=== PATIENT | female | born 1955 | race Caucasian/White ===

== ENCOUNTER 2025-05-11 16:51 | Emergency (ER) | payer MEDICARE, OTHER ==
[~2025-05-11] VITALS: Ht 167.6 cm; Wt 59.0 kg
[2025-05-11] MEDS: DIAZEPAM 5 MG TAB PO ONE (19:42)
[2025-05-11] MEDS: SODIUM CHLORIDE 0.9% 1000ML 1,000 ML IV ONE ×2 (19:51→21:42)
[2025-05-11 20:08] LABS: BASOPHILS % 0.3 % (0.0-1.0); EOSINOPHILS % 0.3 % (0.0-6.0); LYMPHOCYTES % 9.6 % (18.0-39.1); MONOCYTES % 10.6 % (4.4-11.3); NEUTROPHILS % 78.7 % (38.7-80.0); RED CELL DISTRIBUTION WIDTH 20.9 % (11.7-14.4)
[2025-05-11 20:29] LABS: EST GLOMERULAR FILTRATION RATE 95.0 ML/MIN (>=60)
[2025-05-11 22:12] VITALS: PULSE 88; RESP 20; TEMP 98.2; O2SAT 97
== END 2025-05-11 22:40 | disposition home or self-care (01) ==
LOC: ER 18:05
DX: F41.9 Anxiety disorder, unspecified (principal); E87.1 Hypo-osmolality and hyponatremia; I10 Essential (primary) hypertension; F32.A Depression, unspecified
CPT/HCPCS: 36415; 80053; 85025; 99284; J7030

== ENCOUNTER 2025-05-14 21:32 | Inpatient (IN) | payer MEDICARE, OTHER ==
[~2025-05-14] VITALS: Ht 167.6 cm; Wt 60.8 kg
[~2025-05-14 21:32] MED LIST: ETOMIDATE 2 MG/ML 10 ML INJ IV ONE; MIDAZOLAM HCL 2 MG/2 ML VIAL ONE; SUCCINYLCHOLINE CHLORIDE 20 MG/ML 10ML VIAL ONE; VECURONIUM BROMIDE FOR INJ 20 MG VIAL ONE; WATER STERILE 10 ML VIAL ONE
[2025-05-14] MEDS: LORAZEPAM INJ 2 MG/ML VIAL IV ONE ×2 (21:46→22:13)
[2025-05-14 22:03] LABS: BASOPHILS % 0.1 % (0.0-1.0); EOSINOPHILS % 0.2 % (0.0-6.0); LYMPHOCYTES % 5.1 % (18.0-39.1); MONOCYTES % 11.5 % (4.4-11.3); NEUTROPHILS % 81.9 % (38.7-80.0); RED CELL DISTRIBUTION WIDTH 19.6 % (11.7-14.4)
[2025-05-14] MEDS: SODIUM CHLORIDE 0.9% 1000ML 1,000 ML IV ONE (22:08)
[2025-05-14 22:28] LABS: EST GLOMERULAR FILTRATION RATE 96.0 ML/MIN (>=60)
[2025-05-14 22:28] LABS: LEUKOCYTE ESTERASE ,URINE NEGATIVE (NEGATIVE); PROTEIN,URINE DIPSTICK NEGATIVE (NEGATIVE); URINE UROBILINOGEN 1 mg/dL (0.2 - 1)
[2025-05-14 22:30] LABS: AMPHETAMINES SCREEN,URINE NEGATIVE (NEGATIVE); CANNABINOIDS SCREEN,URINE POSITIVE (NEGATIVE); COCAINE SCREEN,URINE NEGATIVE (NEGATIVE); METHADONE SCREEN, URINE NEGATIVE (NEGATIVE); OPIATES SCREEN,URINE NEGATIVE (NEGATIVE)
[2025-05-14 23:20] LABS: ABG PCO2 20 mmHg (35-45); ABG PH 7.43 (7.35-7.45); ABG PO2 70 mmHg (80-105)
[2025-05-14 23:21] LABS: ABG BASE EXCESS -11.0 mmol/L (-2 - 3); ABG HCO3 13 mmol/L (22-26); ABG OXYGEN SATURATION 95.0 % (95-98); ABG TCO2 14
[2025-05-14] MEDS: MUPIROCIN 2% OINT 22 GM TUBE TOP SCH (23:30)
[2025-05-14] MEDS ORDERED: SODIUM CHLORIDE FLUSH 10 ML SYR INJ PRN (23:30)
[2025-05-14] MEDS ORDERED: LORAZEPAM INJ 2 MG/ML VIAL IV SCH (23:30)
[2025-05-15] VITALS (96 sets, daily range): BP systolic 78–181; BP diastolic 50–129; PULSE 66–119; RESP 12–38; TEMP 97.4–99.7; O2SAT 63–100
[2025-05-15 01:03] LABS: EST GLOMERULAR FILTRATION RATE 95.0 ML/MIN (>=60)
[2025-05-15] MEDS ORDERED: MELATONIN 3 MG TAB PO PRN (01:15)
[2025-05-15] MEDS ORDERED: GUAIFENESIN/DEXTROMETHORPHAN LIQD 5 ML UDC PO PRN (01:15)
[2025-05-15] MEDS ORDERED: HYDRALAZINE HCL 20 MG/ML VIAL IV PRN (01:15)
[2025-05-15] MEDS ORDERED: MAGNESIUM/ALUMINUM/SIMETHICONE 30 ML UDC PO PRN (01:15)
[2025-05-15] MEDS: LORAZEPAM INJ 2 MG/ML VIAL IV PRN (01:28)
[2025-05-15] MEDS: LORAZEPAM INJ 2 MG/ML VIAL IV ONE (02:14)
[2025-05-15] MEDS: SODIUM CHLORIDE 3% 500 ML IV STA (02:51)
[2025-05-15] MEDS: THIAMINE HCL INJ 100 MG/ML 2ML VIAL IV ONE (03:02)
[2025-05-15] MEDS: Vancomycin IV 1 GM in SODIUM CHLORIDE 0.9% 250ML 250 ML IV ONE (03:46)
[2025-05-15 04:17] LABS: LYMPHOCYTES % (MANUAL) 9 % (19-48); MONOCYTES % (MANUAL) 13 % (3.4-9.0); NEUTROPHILS % (MANUAL) 78 % (40-74)
[2025-05-15 04:19] LABS: ELLIPTOCYTE, RBC MODERATE; RBC MORPHOLOGY COMMENT ABNORMAL
[2025-05-15 04:21] LABS: PLATELET ESTIMATE ADEQUATE; PLATELET MORPHOLOGY COMMENT FEW LARGE
[2025-05-15 05:20] LABS: CREATININE,URINE RANDOM 51.55 mg/dL (47-110)
[2025-05-15] MEDS: DEXMEDETOMIDINE 400MCG/NS100ML 100 ML IV PRN (05:30)
[2025-05-15 06:45] LABS: BASOPHILS % 0.2 % (0.0-1.0); EOSINOPHILS % 0.0 % (0.0-6.0); LYMPHOCYTES % 1.8 % (18.0-39.1); MONOCYTES % 8.0 % (4.4-11.3); NEUTROPHILS % 88.6 % (38.7-80.0); RED CELL DISTRIBUTION WIDTH 19.6 % (11.7-14.4)
[2025-05-15 07:11] LABS: EST GLOMERULAR FILTRATION RATE 96.0 ML/MIN (>=60)
[2025-05-15] MEDS: ALBUTEROL SULF 0.083% NEB SOLN 3 ML NEB NEB PRN (07:22)
[2025-05-15 07:36] LABS: PHOSPHORUS 2.4 MG/DL (2.3-4.7)
[2025-05-15] MEDS ORDERED: ALPRAZOLAM0.5 MG PO (08:25)
[2025-05-15] MEDS ORDERED: CLONIDINE HCL0.1 MG PO (08:25)
[2025-05-15] MEDS ORDERED: CYMBALTA30 MG (08:25)
[2025-05-15] MEDS ORDERED: AMLODIPINE BESYL5 MG PO (08:25)
[2025-05-15] MEDS ORDERED: LEVOTHYROXINE50 MCG PO (08:25)
[2025-05-15] MEDS: ALBUMIN 5% 0.05 GM/ML BTL IV ONE (08:42)
[2025-05-15] MEDS: CEFTRIAXONE 2 GM in SODIUM CHLORIDE 0.9% 100 ML IV SCH (08:42)
[2025-05-15 08:51] LABS: INR 1.18
[2025-05-15] MEDS: FOLIC ACID 1 MG TAB PO SCH (08:55)
[2025-05-15] MEDS: SALINE 0.65% NAS SOLN 1 SPRAY BTL SCH (08:55)
[2025-05-15] MEDS: THIAMINE HCL 100 MG TAB PO SCH (08:55)
[2025-05-15] MEDS: MULTIVITAMINS/MINERALS TAB PO SCH (08:55)
[2025-05-15 08:56] LABS: % IRON SATURATION 6.0 % (15-50)
[2025-05-15] MEDS: SODIUM CHLORIDE 0.45% 1,000 ML IV SCH ×2 (08:59→22:21)
[2025-05-15] MEDS ORDERED: LIDOCAINE HCL 1% 30ML-PF VIAL ONE (09:30)
[2025-05-15] MEDS: ZIPRASIDONE 20 MG VIAL IM ONE (09:34)
[2025-05-15 10:45] LABS: BAND NEUTROPHILS % (MANUAL) 1 %; LYMPHOCYTES % (MANUAL) 2 % (19-48); MONOCYTES % (MANUAL) 6 % (3.4-9.0); NEUTROPHILS % (MANUAL) 91 % (40-74); PLATELET ESTIMATE ADEQUATE; PLATELET MORPHOLOGY COMMENT NORMAL; RBC MORPHOLOGY COMMENT ABNORMAL
[2025-05-15] MEDS ORDERED: FENTANYL CITRATE/PF 100MCG/2 ML INJ ONE (10:53)
[2025-05-15 11:28] LABS: EST GLOMERULAR FILTRATION RATE 96.0 ML/MIN (>=60)
[2025-05-15] MEDS ORDERED: DESMOPRESSIN ACETATE 4 MCG/ML VIAL IV ONE (12:45)
[2025-05-15] MEDS: SODIUM CHLORIDE 0.9% IV ONE (13:18)
[2025-05-15] MEDS: DESMOPRESSIN ACETATE IV ONE (13:18)
[2025-05-15] MEDS: PROPOFOL IV EMULSION 10MG/ML 100 ML IV PRN (15:01)
[2025-05-15] MEDS: FENTANYL 2000MCG/NS 250 250 ML IV PRN (15:16)
[2025-05-15] MEDS: SODIUM CHLORIDE 0.9% 500ML 500 ML ONE (16:00)
[2025-05-15] MEDS: NOREPINEPHRINE 8 MG/D5W 250 ML 250 ML IV SCH (16:00)
[2025-05-15] MEDS: MIDAZOLAM HCL 2 MG/2 ML VIAL IV STA (16:30)
[2025-05-15] MEDS: MIDAZOLAM HCL 2 MG/2 ML VIAL ONE (16:31)
[2025-05-15 16:46] LABS: CORONAVIRUS COVID-19 AG NEGATIVE (NEGATIVE)
[2025-05-15] MEDS: ENOXAPARIN SOD INJ 40 MG/0.4 ML SYR SC SCH (16:53)
[2025-05-15 16:54] LABS: EST GLOMERULAR FILTRATION RATE 95.0 ML/MIN (>=60)
[2025-05-15] MEDS: SODIUM BICARBONATE 8.4% VIAL 50 ML in DEXTROSE 5% 1,000 ML IV ONE (17:19)
[2025-05-15] MEDS ORDERED: Vancomycin IV 1 GM in SODIUM CHLORIDE 0.9% 250ML 250 ML IV SCH (17:30)
[2025-05-15 17:43] LABS: ABG BASE EXCESS -9.0 mmol/L (-2 - 3); ABG HCO3 16 mmol/L (22-26); ABG OXYGEN SATURATION 95.0 % (95-98); ABG PCO2 26 mmHg (35-45); ABG PH 7.39 (7.35-7.45); ABG PO2 72 mmHg (80-105); ABG TCO2 17
[2025-05-15 17:45] LABS: ABG BASE EXCESS -9.0 mmol/L (-2 - 3); ABG HCO3 17 mmol/L (22-26); ABG OXYGEN SATURATION 95.0 % (95-98); ABG PCO2 28 mmHg (35-45); ABG PH 7.38 (7.35-7.45); ABG PO2 74 mmHg (80-105); ABG TCO2 17
[2025-05-15] MEDS ORDERED: IOPAMIDOL 370 MG/ML 100 ML INFUS..BTL INJ ONE (20:17)
[2025-05-15 21:38] LABS: EST GLOMERULAR FILTRATION RATE 83.0 ML/MIN (>=60)
[2025-05-16] VITALS (81 sets, daily range): BP systolic 93–124; BP diastolic 44–76; PULSE 71–88; RESP 12–23; TEMP 98.1–99.8; O2SAT 94–100
[2025-05-16 04:52] LABS: BASOPHILS % 0.2 % (0.0-1.0); EOSINOPHILS % 0.9 % (0.0-6.0); LYMPHOCYTES % 5.9 % (18.0-39.1); MONOCYTES % 8.2 % (4.4-11.3); NEUTROPHILS % 83.8 % (38.7-80.0); RED CELL DISTRIBUTION WIDTH 20.0 % (11.7-14.4)
[2025-05-16 05:01] LABS: EST GLOMERULAR FILTRATION RATE 81.0 ML/MIN (>=60)
[2025-05-16] MEDS: Vancomycin IV 1 GM in SODIUM CHLORIDE 0.9% 250ML 250 ML IV SCH (08:26)
[2025-05-16 09:31] LABS: ABG BASE EXCESS -8.0 mmol/L (-2 - 3); ABG HCO3 19 mmol/L (22-26); ABG OXYGEN SATURATION 96.0 % (95-98); ABG PCO2 44 mmHg (35-45); ABG PH 7.24 (7.35-7.45); ABG PO2 100 mmHg (80-105); ABG TCO2 20
[2025-05-16 09:51] LABS: BASOPHILS % (MANUAL) 1 % (0-1.5); EOSINOPHILS % (MANUAL) 1 % (0-7); LYMPHOCYTES % (MANUAL) 7 % (19-48); MONOCYTES % (MANUAL) 6 % (3.4-9.0); NEUTROPHILS % (MANUAL) 83 % (40-74); PLATELET ESTIMATE SLIGHTLY INCREASED; PLATELET MORPHOLOGY COMMENT NORMAL; RBC MORPHOLOGY COMMENT NORMAL; REACTIVE LYMPHOCYTES 2
[2025-05-16 14:26] LABS: ABG BASE EXCESS -9.0 mmol/L (-2 - 3); ABG HCO3 16 mmol/L (22-26); ABG OXYGEN SATURATION 95.0 % (95-98); ABG PCO2 26 mmHg (35-45); ABG PH 7.39 (7.35-7.45); ABG PO2 72 mmHg (80-105); ABG TCO2 17
[2025-05-16 14:26] LABS: ABG BASE EXCESS -9.0 mmol/L (-2 - 3); ABG HCO3 17 mmol/L (22-26); ABG OXYGEN SATURATION 95.0 % (95-98); ABG PCO2 28 mmHg (35-45); ABG PH 7.38 (7.35-7.45); ABG PO2 74 mmHg (80-105); ABG TCO2 17
[2025-05-16 14:26] LABS: ABG BASE EXCESS -8.0 mmol/L (-2 - 3); ABG HCO3 19 mmol/L (22-26); ABG OXYGEN SATURATION 96.0 % (95-98); ABG PCO2 44 mmHg (35-45); ABG PH 7.24 (7.35-7.45); ABG PO2 100 mmHg (80-105); ABG TCO2 20
[2025-05-16] MEDS ORDERED: ALBUMIN 5% 0.05 GM/ML BTL IV ONE (15:00)
[2025-05-16] MEDS: POTASSIUM CHLORIDE 20MEQ/100ML 100 ML IV SCH (15:26)
[2025-05-16 15:36] LABS: OSMOLALITY,SERUM OSMOMETER 241 mOsmol/kg (280-301)
[2025-05-16] MEDS: ALBUMIN 5% 250ML 250 ML IV ONE (16:00)
[2025-05-16 16:10] LABS: % IRON SATURATION 7.0 % (15-50)
[2025-05-16 17:03] LABS: ABG BASE EXCESS -8.0 mmol/L (-2 - 3); ABG HCO3 18 mmol/L (22-26); ABG OXYGEN SATURATION 98.0 % (95-98); ABG PCO2 35 mmHg (35-45); ABG PH 7.33 (7.35-7.45); ABG PO2 104 mmHg (80-105); ABG TCO2 19
[2025-05-16 17:26] LABS: OSMOLALITY,URINE 385 mOsmol/kg (.)
[2025-05-17] VITALS (64 sets, daily range): BP systolic 99–135; BP diastolic 58–81; PULSE 63–92; RESP 15–24; TEMP 98–98.8; O2SAT 89–100
[2025-05-17 05:23] LABS: BASOPHILS % 0.3 % (0.0-1.0); EOSINOPHILS % 1.3 % (0.0-6.0); LYMPHOCYTES % 5.1 % (18.0-39.1); MONOCYTES % 9.9 % (4.4-11.3); NEUTROPHILS % 82.3 % (38.7-80.0); RED CELL DISTRIBUTION WIDTH 20.5 % (11.7-14.4)
[2025-05-17 05:47] LABS: ABG BASE EXCESS -11.0 mmol/L (-2 - 3); ABG HCO3 13 mmol/L (22-26); ABG OXYGEN SATURATION 95.0 % (95-98); ABG PCO2 20 mmHg (35-45); ABG PH 7.43 (7.35-7.45); ABG PO2 70 mmHg (80-105); ABG TCO2 14
[2025-05-17 06:11] LABS: EST GLOMERULAR FILTRATION RATE 97.0 ML/MIN (>=60)
[2025-05-17 09:11] LABS: ABG BASE EXCESS -9.0 mmol/L (-2 - 3); ABG HCO3 17 mmol/L (22-26); ABG OXYGEN SATURATION 99.0 % (95-98); ABG PCO2 33 mmHg (35-45); ABG PH 7.32 (7.35-7.45); ABG PO2 130 mmHg (80-105); ABG TCO2 18
[2025-05-17 09:31] LABS: EOSINOPHILS % (MANUAL) 1 % (0-7); LYMPHOCYTES % (MANUAL) 2 % (19-48); MONOCYTES % (MANUAL) 5 % (3.4-9.0); NEUTROPHILS % (MANUAL) 92 % (40-74); PLATELET ESTIMATE SLIGHTLY INCREASED; PLATELET MORPHOLOGY COMMENT NORMAL; RBC MORPHOLOGY COMMENT NORMAL
[2025-05-17 09:32] LABS: ELLIPTOCYTE, RBC SLIGHT
[2025-05-17] MEDS: SODIUM CHLORIDE 0.45% 1,000 ML IV SCH (13:06)
[2025-05-17] MEDS: SODIUM CHLORIDE 0.45% 1,000 ML ONE (13:54)
[2025-05-17] MEDS: DEXTROSE 5% 1,000 ML IV ONE (22:41)
[2025-05-17] MEDS: DESMOPRESSIN ACETATE 4 MCG/ML VIAL IV ONE (23:39)
[2025-05-18] VITALS (36 sets, daily range): BP systolic 113–141; BP diastolic 59–87; PULSE 61–74; RESP 18–20; TEMP 97.8–99; O2SAT 93–100
[2025-05-18 07:28] LABS: EST GLOMERULAR FILTRATION RATE 101 ML/MIN (>=60)
[2025-05-18 08:08] LABS: BASOPHILS % 0.4 % (0.0-1.0); EOSINOPHILS % 5.1 % (0.0-6.0); LYMPHOCYTES % 9.5 % (18.0-39.1); MONOCYTES % 12.1 % (4.4-11.3); NEUTROPHILS % 71.4 % (38.7-80.0); RED CELL DISTRIBUTION WIDTH 21.3 % (11.7-14.4)
[2025-05-18 08:46] LABS: ABG BASE EXCESS -4.0 mmol/L (-2 - 3); ABG HCO3 21 mmol/L (22-26); ABG OXYGEN SATURATION 92.0 % (95-98); ABG PCO2 37 mmHg (35-45); ABG PH 7.37 (7.35-7.45); ABG PO2 66 mmHg (80-105); ABG TCO2 22
[2025-05-18] MEDS: POTASSIUM CHLORIDE 20MEQ/100ML 200 ML IV ONE (09:53)
[2025-05-18 11:10] LABS: PLATELET ESTIMATE ADEQUATE; PLATELET MORPHOLOGY COMMENT NORMAL
[2025-05-18] MEDS: LORAZEPAM INJ 2 MG/ML VIAL IV ONE (11:37)
[2025-05-18] MEDS: DEXTROSE 5% 1,000 ML IV ONE (19:49)
[2025-05-18] MEDS: CENTRAL TPN FORMULA 1 BAG IV SCH (19:56)
[2025-05-19] VITALS (52 sets, daily range): BP systolic 107–181; BP diastolic 52–126; PULSE 65–119; RESP 15–38; TEMP 98.3–98.9; O2SAT 86–99
[2025-05-19 07:17] LABS: BASOPHILS % 0.2 % (0.0-1.0); EOSINOPHILS % 4.9 % (0.0-6.0); LYMPHOCYTES % 5.7 % (18.0-39.1); MONOCYTES % 13.8 % (4.4-11.3); NEUTROPHILS % 74.1 % (38.7-80.0); RED CELL DISTRIBUTION WIDTH 21.8 % (11.7-14.4)
[2025-05-19 07:49] LABS: EST GLOMERULAR FILTRATION RATE 98 ML/MIN (>=60)
[2025-05-19 09:56] LABS: ABG PH 7.45 (7.35-7.45)
[2025-05-19 09:57] LABS: ABG BASE EXCESS -1.0 mmol/L (-2 - 3); ABG HCO3 23 mmol/L (22-26); ABG OXYGEN SATURATION 97.0 % (95-98); ABG PCO2 33 mmHg (35-45); ABG PO2 83 mmHg (80-105); ABG TCO2 24
[2025-05-19] MEDS: DEXMEDETOMIDINE 400MCG/NS100ML 100 ML IV PRN (09:57)
[2025-05-19 10:10] LABS: ABG PCO2 41 mmHg (35-45); ABG PH 7.36 (7.35-7.45)
[2025-05-19 10:11] LABS: ABG BASE EXCESS -3.0 mmol/L (-2 - 3); ABG HCO3 23 mmol/L (22-26); ABG OXYGEN SATURATION 87.0 % (95-98); ABG PO2 56 mmHg (80-105); ABG TCO2 24
[2025-05-19] MEDS: CENTRAL TPN FORMULA 1 BAG IV SCH (20:00)
[2025-05-19] MEDS: DEXTROSE 5% 1,000 ML IV SCH (20:31)
[2025-05-20] VITALS (54 sets, daily range): BP systolic 85–146; BP diastolic 46–91; PULSE 52–84; RESP 17–43; TEMP 98.4–98.9; O2SAT 86–100
[2025-05-20] MEDS: ACETAMINOPHEN 325 MG TAB PO PRN (01:21)
[2025-05-20] MEDS: LORAZEPAM INJ 2 MG/ML VIAL IV ONE (03:28)
[2025-05-20 05:25] LABS: BASOPHILS % 0.1 % (0.0-1.0); EOSINOPHILS % 0.7 % (0.0-6.0); LYMPHOCYTES % 5.6 % (18.0-39.1); MONOCYTES % 10.5 % (4.4-11.3); NEUTROPHILS % 82.1 % (38.7-80.0); RED CELL DISTRIBUTION WIDTH 21.4 % (11.7-14.4)
[2025-05-20 06:06] LABS: EST GLOMERULAR FILTRATION RATE 100 ML/MIN (>=60)
[2025-05-20 08:27] LABS: PLATELET ESTIMATE ADEQUATE; PLATELET MORPHOLOGY COMMENT NORMAL; RBC MORPHOLOGY COMMENT ABNORMAL
[2025-05-20] MEDS: POTASSIUM CHLORIDE 20MEQ/100ML 100 ML IV SCH ×2 (08:54→18:04)
[2025-05-20] MEDS: FUROSEMIDE INJ 10 MG/ML 2 ML VIAL IV ONE (15:08)
[2025-05-20 16:42] LABS: EST GLOMERULAR FILTRATION RATE 100.0 ML/MIN (>=60)
[2025-05-20] MEDS: ACETAMINOPHEN 325 MG TAB PO STA (19:12)
[2025-05-20] MEDS: SODIUM CHLORIDE 0.9% 250ML 250 ML IV ONE (19:12)
[2025-05-20] MEDS: ACETAMINOPHEN 1000 MG/100 ML IV PRN (20:37)
[2025-05-21] VITALS (34 sets, daily range): BP systolic 82–137; BP diastolic 55–82; PULSE 45–94; RESP 18–43; TEMP 98.2–98.6; O2SAT 93–100
[2025-05-21 05:18] LABS: BASOPHILS % 0.4 % (0.0-1.0); EOSINOPHILS % 2.3 % (0.0-6.0); LYMPHOCYTES % 6.8 % (18.0-39.1); MONOCYTES % 9.7 % (4.4-11.3); NEUTROPHILS % 79.7 % (38.7-80.0); RED CELL DISTRIBUTION WIDTH 22.3 % (11.7-14.4)
[2025-05-21 06:10] LABS: EST GLOMERULAR FILTRATION RATE 101.0 ML/MIN (>=60)
[2025-05-21] MEDS: POTASSIUM CHLORIDE 20MEQ/100ML 100 ML IV SCH (08:29)
[2025-05-21] MEDS: BALSAM PERU/CASTOR OIL 28.35 GM OINT...G. TP SCH (08:30)
[2025-05-21] MEDS ORDERED: BALSAM PERU/CASTOR OIL 60 GM OINT...G. TP SCH ×2 (09:00)
[2025-05-21 10:28] LABS: PLATELET ESTIMATE ADEQUATE; PLATELET MORPHOLOGY COMMENT NORMAL
[2025-05-21] MEDS: ENOXAPARIN SOD INJ 40 MG/0.4 ML SYR SC SCH (18:25)
[2025-05-21] MEDS: MANNITOL 25% 12.5GM/50ML 100 ML ONE (21:08)
[2025-05-22] VITALS (32 sets, daily range): BP systolic 97–179; BP diastolic 60–94; PULSE 47–74; RESP 12–32; TEMP 97.5–98.2; O2SAT 90–100
[2025-05-22 05:25] LABS: BASOPHILS % 0.5 % (0.0-1.0); EOSINOPHILS % 5.4 % (0.0-6.0); LYMPHOCYTES % 12.3 % (18.0-39.1); MONOCYTES % 10.5 % (4.4-11.3); NEUTROPHILS % 70.1 % (38.7-80.0); RED CELL DISTRIBUTION WIDTH 22.9 % (11.7-14.4)
[2025-05-22 05:50] LABS: EST GLOMERULAR FILTRATION RATE 102.0 ML/MIN (>=60); PHOSPHORUS 2.0 MG/DL (2.3-4.7)
[2025-05-22] MEDS: CENTRAL TPN FORMULA 1 BAG IV SCH (19:55)
[2025-05-23] VITALS (25 sets, daily range): BP systolic 119–156; BP diastolic 63–87; PULSE 45–70; RESP 10–22; TEMP 97.6–98.4; O2SAT 96–100
[2025-05-23 05:26] LABS: BASOPHILS % 0.6 % (0.0-1.0); EOSINOPHILS % 5.8 % (0.0-6.0); LYMPHOCYTES % 15.0 % (18.0-39.1); MONOCYTES % 12.6 % (4.4-11.3); NEUTROPHILS % 64.7 % (38.7-80.0); RED CELL DISTRIBUTION WIDTH 23.3 % (11.7-14.4)
[2025-05-23 06:07] LABS: EST GLOMERULAR FILTRATION RATE 101.0 ML/MIN (>=60)
[2025-05-23] MEDS: ONDANSETRON HCL INJ 2MG/ML 2ML 2 MG/ML VIAL IV PRN (06:10)
[2025-05-23 09:29] LABS: ABG BASE EXCESS -8.0 mmol/L (-2 - 3); ABG HCO3 15 mmol/L (22-26); ABG OXYGEN SATURATION 100.0 % (95-98); ABG PCO2 18 mmHg (35-45); ABG PH 7.53 (7.35-7.45); ABG PO2 185 mmHg (80-105); ABG TCO2 16
[2025-05-23 09:29] LABS: ABG BASE EXCESS -1.0 mmol/L (-2 - 3); ABG HCO3 23 mmol/L (22-26); ABG OXYGEN SATURATION 97.0 % (95-98); ABG PCO2 33 mmHg (35-45); ABG PH 7.45 (7.35-7.45); ABG PO2 83 mmHg (80-105); ABG TCO2 24
[2025-05-23 09:29] LABS: ABG BASE EXCESS -8.0 mmol/L (-2 - 3); ABG HCO3 18 mmol/L (22-26); ABG OXYGEN SATURATION 98.0 % (95-98); ABG PCO2 35 mmHg (35-45); ABG PH 7.33 (7.35-7.45); ABG PO2 104 mmHg (80-105); ABG TCO2 19
[2025-05-23 09:29] LABS: ABG BASE EXCESS -4.0 mmol/L (-2 - 3); ABG HCO3 21 mmol/L (22-26); ABG OXYGEN SATURATION 92.0 % (95-98); ABG PCO2 37 mmHg (35-45); ABG PH 7.37 (7.35-7.45); ABG PO2 66 mmHg (80-105); ABG TCO2 22
[2025-05-23 09:29] LABS: ABG BASE EXCESS -9.0 mmol/L (-2 - 3); ABG HCO3 17 mmol/L (22-26); ABG OXYGEN SATURATION 99.0 % (95-98); ABG PCO2 33 mmHg (35-45); ABG PH 7.32 (7.35-7.45); ABG PO2 130 mmHg (80-105); ABG TCO2 18
[2025-05-23] MEDS: CENTRAL TPN FORMULA 1 BAG IV SCH (21:30)
[2025-05-24] VITALS (30 sets, daily range): BP systolic 136–169; BP diastolic 71–88; PULSE 37–74; RESP 15–24; TEMP 98.1–98.4; O2SAT 97–100
[2025-05-24 06:46] LABS: BASOPHILS % 0.5 % (0.0-1.0); EOSINOPHILS % 4.7 % (0.0-6.0); LYMPHOCYTES % 15.9 % (18.0-39.1); MONOCYTES % 13.2 % (4.4-11.3); NEUTROPHILS % 64.3 % (38.7-80.0); RED CELL DISTRIBUTION WIDTH 23.9 % (11.7-14.4)
[2025-05-24 07:15] LABS: EST GLOMERULAR FILTRATION RATE 101.0 ML/MIN (>=60)
[2025-05-24] MEDS: POTASSIUM CHLORIDE 20MEQ/100ML 100 ML IV SCH (13:54)
== END 2025-05-24 22:30 | DRG 871 ==
LOC: ER 21:44 → ERHOLD 23:21 → ICU 05-15 01:35
PROVIDERS: ADMIT Family Medicine; ATTEND Family Medicine
PROC: 0BH17EZ Insertion of Endotracheal Airway into Trachea, Via Natural or Artificial Opening (ICD-10-PCS; 2025-05-14)
PROC: 4A033R1 Measurement of Arterial Saturation, Peripheral, Percutaneous Approach (ICD-10-PCS; 2025-05-14)
PROC: 4A033R1 Measurement of Arterial Saturation, Peripheral, Percutaneous Approach (ICD-10-PCS; 2025-05-14)
PROC: 3E0336Z Introduction of Nutritional Substance into Peripheral Vein, Percutaneous Approach (ICD-10-PCS; 2025-05-15)
PROC: 05HM33Z Insertion of Infusion Device into Right Internal Jugular Vein, Percutaneous Approach (ICD-10-PCS; 2025-05-15)
PROC: 5A09357 Assistance with Respiratory Ventilation, Less than 24 Consecutive Hours, Continuous Positive Airway Pressure (ICD-10-PCS; 2025-05-15)
PROC: 5A1945Z Respiratory Ventilation, 24-96 Consecutive Hours (ICD-10-PCS; 2025-05-15)
PROC: 4A033R1 Measurement of Arterial Saturation, Peripheral, Percutaneous Approach (ICD-10-PCS; 2025-05-15)
PROC: 4A033R1 Measurement of Arterial Saturation, Peripheral, Percutaneous Approach (ICD-10-PCS; 2025-05-15)
PROC: 4A033R1 Measurement of Arterial Saturation, Peripheral, Percutaneous Approach (ICD-10-PCS; 2025-05-15)
PROC: 4A033R1 Measurement of Arterial Saturation, Peripheral, Percutaneous Approach (ICD-10-PCS; 2025-05-15)
PROC: 4A033R1 Measurement of Arterial Saturation, Peripheral, Percutaneous Approach (ICD-10-PCS; 2025-05-16)
PROC: 4A033R1 Measurement of Arterial Saturation, Peripheral, Percutaneous Approach (ICD-10-PCS; 2025-05-16)
PROC: 4A033R1 Measurement of Arterial Saturation, Peripheral, Percutaneous Approach (ICD-10-PCS; 2025-05-16)
PROC: 4A033R1 Measurement of Arterial Saturation, Peripheral, Percutaneous Approach (ICD-10-PCS; 2025-05-16)
PROC: 4A033R1 Measurement of Arterial Saturation, Peripheral, Percutaneous Approach (ICD-10-PCS; 2025-05-17)
PROC: 4A033R1 Measurement of Arterial Saturation, Peripheral, Percutaneous Approach (ICD-10-PCS; 2025-05-17)
PROC: 4A033R1 Measurement of Arterial Saturation, Peripheral, Percutaneous Approach (ICD-10-PCS; 2025-05-17)
PROC: 4A033R1 Measurement of Arterial Saturation, Peripheral, Percutaneous Approach (ICD-10-PCS; 2025-05-18)
PROC: 4A033R1 Measurement of Arterial Saturation, Peripheral, Percutaneous Approach (ICD-10-PCS; 2025-05-18)
PROC: 4A033R1 Measurement of Arterial Saturation, Peripheral, Percutaneous Approach (ICD-10-PCS; 2025-05-19)
PROC: 4A033R1 Measurement of Arterial Saturation, Peripheral, Percutaneous Approach (ICD-10-PCS; 2025-05-19)
PROC: 4A033R1 Measurement of Arterial Saturation, Peripheral, Percutaneous Approach (ICD-10-PCS; 2025-05-19)
PROC: 4A033R1 Measurement of Arterial Saturation, Peripheral, Percutaneous Approach (ICD-10-PCS; 2025-05-19)
PROC: 02HV33Z Insertion of Infusion Device into Superior Vena Cava, Percutaneous Approach (ICD-10-PCS; principal; 2025-05-23)
PROC: B548ZZA Ultrasonography of Superior Vena Cava, Guidance (ICD-10-PCS; 2025-05-23)
PROC: 5A0935A Assistance with Respiratory Ventilation, Less than 24 Consecutive Hours, High Flow/Velocity Cannula (ICD-10-PCS; 2025-05-23)
DX: A41.9 Sepsis, unspecified organism (principal); G92.8 Other toxic encephalopathy; J69.0 Pneumonitis due to inhalation of food and vomit; J96.01 Acute respiratory failure with hypoxia; G93.41 Metabolic encephalopathy; E87.1 Hypo-osmolality and hyponatremia; N39.0 Urinary tract infection, site not specified; F19.231 Other psychoactive substance dependence with withdrawal delirium; E87.20 Acidosis, unspecified; E44.0 Moderate protein-calorie malnutrition; L97.408 Non-pressure chronic ulcer of unspecified heel and midfoot with other specified severity; R65.20 Severe sepsis without septic shock; R33.9 Retention of urine, unspecified; I10 Essential (primary) hypertension; F41.8 Other specified anxiety disorders; F17.210 Nicotine dependence, cigarettes, uncomplicated; D75.839 Thrombocytosis, unspecified; R73.9 Hyperglycemia, unspecified; D50.0 Iron deficiency anemia secondary to blood loss (chronic); K44.9 Diaphragmatic hernia without obstruction or gangrene; K57.30 Diverticulosis of large intestine without perforation or abscess without bleeding; R45.1 Restlessness and agitation; E87.6 Hypokalemia; Z71.3 Dietary counseling and surveillance; I69.30 Unspecified sequelae of cerebral infarction; Z68.21 Body mass index [BMI] 21.0-21.9, adult; R53.81 Other malaise; Z78.1 Physical restraint status; Z11.52 Encounter for screening for COVID-19; Z79.899 Other long term (current) drug therapy
CPT/HCPCS: 36415; 36569; 36600; 70450; 71045; 71260; 74018; 74177; 74470; 80048; 80053; 80202; 80307; 80320; 81001; 81003; 82550; 82570; 82728; 82805; 83540; 83605; 83735; 83930; 83935; 84100; 84295; 84300; 84443; 84466; 84478; 84484; 85025; 85610; 86850; 86900; 86920; 87040; 87070; 87071; 87205; 93005; 94002; 94003; 94640; 94660; 94799; 99252; 99285; J0330; J0360; J0696; J0713; J1650; J1938; J2003; J2060; J2150; J2250; J2405; J2543; J3373; J3411; J3480; J3486; J7030; J7040; J7050; J7070; J7131; P9016; Q9967